=== PATIENT | female | born 1955 | race Caucasian/White ===

== ENCOUNTER 2016-04-03 07:52 | Inpatient (IN) | payer BC ==
[~2016-04-03] VITALS: Ht 172.7 cm; Wt 68.5 kg
[~2016-04-03 07:52] MED LIST: ADVAIR 250/501 DISK IH; ADVICOR PO; ASPIR-LOW81 MG PO; ATORVASTATIN CA80 MG PO; Aspirin E.C. PO; BABY ASPIRIN81 M1 PO; CRESTOR10 MG PO; Cozaar PO; FURO40I IV; FUROSEMIDE20 MG PO; GLUCOPHAGE500 MG PO; LIPITOR20 MG PO; LO-DOSE ASPIRIN81 M1 PO; LOPRESSOR25 MG PO; LOPRESSOR50 MG PO; Lipitor PO; Lopressor PO; METFORMIN HCL500 MG PO; METOPROLOL SUCC50 MG PO; MOBIC7.5 MG PO; NEURONTIN300 MG PO; NICOTINE PATCH1 EAC2 TD; NITROSTAT0.4 MG SL; NORCO 5/3251 TABLET PO; NOVOLOG PE100 UNITS/ SC; OXYCODONE HCL5 MG PO; PANTOPRAZOLE SO40 MG PO; Plavix PO; SPIRIVA1 INHALATI IH; TRAMADOL HCL50 MG PO; ULTRAM50 MG PO; Zestril,Prinivil PO; crestor
[2016-04-03 09:23] LABS: HEMATOCRIT 36.5 % (36.0-46.0); MCHC 30.7 G/DL (30.0-36.0); MCV 78.2 FL (83-99); MEAN PLAT.VOLUME 11.4 uM^3 (9.5-12.4); PLATELET COUNT 216 K/uL (156-360); RBC DIS.WIDTH-CV 18.6 % (11.8-14.6); RBC DIS.WIDTH-SD 50.6 % (39-53); RED BLOOD COUNT 4.67 M/uL (3.80-5.20); WHITE BLOOD COUNT 10.3 K/uL (4.1-10.2)
[2016-04-03 09:25] LABS: BASOPHIL COUNT 0.1 K/uL (0-0.1); EOSINOPHIL (%) 2.1 % (0-5); EOSINOPHIL COUNT 0.2 K/uL (0-0.3); IMMATURE GRANULOCYTE (%) 0.3 % (0.0-0.7); IMMATURE GRANULOCYTE COUNT 0.3 K/uL; LYMPHOCYTE COUNT 2.7 K/uL (1.0-2.8); MONOCYTE (%) 6.3 % (3-12); MONOCYTE COUNT 0.7 K/uL (0-0.8); NEUTROPHIL (%) 64.7 % (45-76); NEUTROPHIL COUNT 6.7 K/uL (1.8-6.4)
[2016-04-03 09:28] LABS: INFLUENZA A VIRAL ANTIGEN NEGATIVE; INFLUENZA B VIRAL ANTIGEN NEGATIVE
[2016-04-03 10:05] LABS: ALKALINE PHOSPHATASE 86 IU/L (3-129); ANION GAP 15 MEQ/L (2-14); CHLORIDE 102 MEQ/L (99-109); GFR ESTIMATE (CALCULATED) 54 mL/min/; GLUCOSE 194 mg/dL (70-99); POTASSIUM 4.6 MEQ/L (3.7-5.4); SAMPLE HEMOLYSIS CHECK 0; SAMPLE ICTERIC CHECK 0; SAMPLE LIPEMIA CHECK 0; SODIUM 136 MEQ/L (136-147); TOTAL BILIRUBIN 0.7 MG/DL (0.0-1.0); UREA NITROGEN (BUN) 17 mg/dL (9-23)
[2016-04-03 10:09] LABS: TROP-I INTERPRETATION NEGATIVE; TROPONIN-I 0.12 ng/mL (0.0-0.30)
[2016-04-03] MEDS ORDERED: TRAZODONE HCL50 MG PO (12:06)
[2016-04-03] MEDS ORDERED: COZAAR25 MG PO (12:06)
[2016-04-03] MEDS ORDERED: NEURONTIN100 MG PO (12:08)
[2016-04-03] MEDS ORDERED: INDOCIN50 MG PO (12:08)
[2016-04-03] MEDS ORDERED: KLONOPIN0.5 M1 PO (12:08)
[2016-04-03] MEDS ORDERED: TYLENOL EXTRA500 MG PO (12:09)
[2016-04-03] MEDS ORDERED: COLACE100 MG PO (12:09)
[2016-04-03 14:10] LABS: ADD MIUA? YES; BILIRUBIN NEGATIVE; BLOOD NEGATIVE; COLOR YELLOW ((YELLOW)); GLUCOSE (STRIP) NEGATIVE; KETONES NEGATIVE; LEUKOCYTES NEGATIVE; NITRITE NEGATIVE; PH, URINE 5.5 (5-8); PROTEIN (STRIP) 30; SPECIFIC GRAVITY 1.024 (1.000-1.030); UROBILINOGEN 0.2 MG/DL (0.2-1.0)
[2016-04-03 14:33] LABS: BACTERIA 2+; CASTS NONE SEEN /LPF; CRYSTALS NONE SEEN; EPITHELIAL CELLS RARE; MUCUS NONE SEEN; RED BLOOD CELLS 0-5 /HPF (0-5); UCUL ADDED? NO; WHITE BLOOD CELLS 0-5 /HPF (0-5)
[2016-04-03 17:16] LABS: POINT-OF-CARE METER ID UU13113698; POINT-OF-CARE USER ID NUTSLF44
[2016-04-03 17:48] VITALS: BP 79/45
[2016-04-03 18:15] VITALS: BP 89/65
[2016-04-04 08:03] LABS: INTERNAL CONTROL VALID? YES
== END 2016-04-03 20:55 | DRG 291 ==
LOC: EME 07:52 → EDOF 11:56 → 4EAST 16:02 → 4WEST 17:01
PROVIDERS: Emergency Medicine; Internal Medicine; Physician Assistant
DX: I11.0 Hypertensive heart disease with heart failure (principal); J18.9 Pneumonia, unspecified organism; R40.20 Unspecified coma; I47.2 Ventricular tachycardia; I46.9 Cardiac arrest, cause unspecified; I50.9 Heart failure, unspecified; I25.2 Old myocardial infarction; K21.9 Gastro-esophageal reflux disease without esophagitis; E11.9 Type 2 diabetes mellitus without complications; Z95.0 Presence of cardiac pacemaker; Z95.5 Presence of coronary angioplasty implant and graft; F17.200 Nicotine dependence, unspecified, uncomplicated; Z66 Do not resuscitate; Z51.5 Encounter for palliative care; I25.10 Atherosclerotic heart disease of native coronary artery without angina pectoris; E78.5 Hyperlipidemia, unspecified; I35.9 Nonrheumatic aortic valve disorder, unspecified
CPT/HCPCS: 36600; 71010; 71020; 80053; 81003; 82550 91; 82553; 82803; 82948; 83605; 83735; 83880; 84100; 84484; 85025; 85025 91; 85610; 85730; 87040; 87449; 87502; 87641; 92950; 93005; 94002; 94640; 94640 76; 99281; 99285; C1751; J0171; J0282; J0456; J0696; J1170; J1644; J1940; J2270; J2405; J7030; J7050